=== PATIENT | female | born 1990 | race Caucasian/White ===

== ENCOUNTER 2019-05-26 05:41 | Inpatient (IN) | payer SELFPAY ==
[2019-05-26] MEDS ORDERED: Oxytocin 10 Units/1 ML SDV ONE (05:59)
[2019-05-26] MEDS ORDERED: Lidocaine 1% 10 ML MDV ONE (06:02)
[2019-05-26] MEDS ORDERED: Benzocaine/Menthol 20%-0.5% Spray 56 GM Canister TOP PRN (07:14)
[2019-05-26] MEDS ORDERED: Oxytocin 10 Units/1 ML SDV IM ONE (07:14)
[2019-05-26] MEDS ORDERED: Witch Hazel Medicated Pads 40/Jar TOP PRN (07:14)
[2019-05-26] MEDS ORDERED: Docusate Sodium 100 MG Cap PO PRN (07:14)
--- NOTE | 2019-05-26 07:23 | PCM.SN ---
- Free Text/Narrative Note: 29-year-old female who is 4 para 3 presented to the ER admitting desk in very active labor unable to sit down due to of the head. has apparently been uneventful and estimated date of confinement had been set at June 03. Patient states that she started to develop contractions around 0200 hrs. that woke her up but the contractions were irregular. They would come one every 10 minutes one every 3 minutes one every 5 minutes etc. They reside in [facility], and had to arrange for grandparents to arrive to look after the 3 children at home. En route to [place] she went into very active labor with contractions coming every 2-3 minutes. Upon arrival in the ER admission area she was screaming in pain due to of the fetus. She was brought back into the ED on her knees on a wheelchair he once we removed her clothing the baby's head was 75% delivered. The fetus was then delivered from behind and resuscitated with aggressive lying often rubbing. Fetus cried right away and I believe received scores of 8 and 9 mild acral cyanosis still present at the 5 minute che. Baby's mouth and nose were suctioned with bulb syringe at time of delivery. No meconium was identified. We were then finally able to transfer the patient onto a gurney in the left lateral decubitus position as the placenta was intact. The cord was milked towards the fetus and then held by me after 2 minutes by hand to prevent reverse flow of blood. It took a while to obtain clamps" from the OB unit. Once the fetus was from mother baby was warmed aggressively and gated catheter placed. Fetus was then given to the mother to hold. It was approximately a 10-14 minute delay in delivering the placenta over a period of 3-4 minutes as it was very slow in . However on inspection all cotyledons were present and I'm quite sure that all of the amniotic sac was delivered intact. The patient did have a fair amount of blood loss because of atony of the uterus. Estimated blood loss is 500 mils. She required vigorous uterine massage by nursing staff and we were able to obtain 10 units of oxytocin to be given IM from the OB unit. Upon inspection the patient has a tear in the midline of the floor of the vagina as well as the peritoneum approximately 7 cm along the vaginal floor and 4.5 cm of the perineum. Initial attempts to repair this in the ED were unsuccessful due to poor positioning and poor lighting. Therefore taken to room 4 on the OB suite for definitive repair by me. The perineum and vaginal floor were infiltrated with 1% lidocaine. [place] of the vaginal tear was identified and sutured with 4-0 Ethilon suture in a continuous fashion. Suture ends were brought out to the introitus. The peritoneum then was sutured with primarily subcutaneous sutures, using 4-0 Ethilon. 2 other sutures were placed 1 at the opening of the introitus and one at the apex of the wound on the inferior perineum to provide adequate closure. Rectal exam done at the end of the procedure reveals the transverse perineal muscles and the floor of the vagina and the wall of the rectum to be intact. Care will be turned over to Dr. Astudillo the patient's OB/ SPEECH AND HEARING CLINIC DIRECTOR and the baby will be cared for by Dr. Khloe Arvizu--farm field manager. I believe the family is cared for by Dr. Sheila Liang. The mother believes she is Rh+. This needs to be double checked. She was also apparently negative for group B strep on last check up in the clinic with Dr. Astudillo. This too needs to be double checked.
--- NOTE | 2019-05-26 08:40 | PCM.LDHP ---
L&D History of Present Illness - General Date of Service: 05/26/19 Admit Problem/Dx: Patient Status Order with Admit Dx/Problem 05/26/19 07:15 Patient Status [ADT] Routine Admission Diagnosis/Problem Admission Diagnosis/Problem Source of Information: Patient History Limitations: Reports: No Limitations - History of Present Illness Introduction:: Patient is a 29-year-old G4 now P3104 day #0 from vaginal delivery at 38-6/7 weeks gestation. 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 She was advised that she could come in or try drinking something and resting and call back in an hour. She called back in 1 hour stating contractions had lessened. She elected to stay home. Call back about another hour later that contractions had returned and were more regular. Planned on coming into the hospital. Slight delay from that phone call in getting to the hospital and ended up having a precipitous delivery in the emergency room department. See Dr. Hines's note for full details. Currently patient is shocked but otherwise feeling well. No significant pain. 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: : 4 Para: 4 - Past Surgical History HEENT Surgical History: Reports: Myringotomy w Tube(s), Oral Surgery, Tonsillectomy Social & Family History - Family History Family Medical History: Noncontributory - Tobacco Use Smoking Status *Q: Never Smoker - Caffeine Use Caffeine Use: Reports: None - Alcohol Use Alcohol Use History: No - Recreational Drug Use Recreational Drug Use: No - Living Situation & Occupation Living situation: Reports: H&P Review of Systems - Review of Systems: Review Of Systems: See Below General: Reports: No Symptoms Pulmonary: Reports: No Symptoms Cardiovascular: Reports: No Symptoms Gastrointestinal: Reports: Abdominal Pain Genitourinary: Reports: No Symptoms Musculoskeletal: Reports: No Symptoms Psychiatric: Reports: No Symptoms L&D Exam - Exam Exam: See Below - Exam General: Alert, Oriented, Cooperative Lungs: Clear to Auscultation, Normal Respiratory Effort Cardiovascular: Regular Rate, Regular Rhythm GI/Abdominal Exam: Soft Genitourinary: Normal external exam Extremities: Normal Inspection Skin: Warm, Dry, Intact - Problem List (1) Vaginal delivery SNOMED Code(s): 771723075 ICD Code: O80 - ENCOUNTER FOR FULL-TERM UNCOMPLICATED DELIVERY Status: Acute Current Visit: No Problem List Initiated/Reviewed/Updated: Yes Orders Last 24hrs: Active Orders 24 hr Category Date Time Status Patient Status [ADT] Routine ADT 05/26/19 07:15 Active Activity as Tolerated [RC] PER UNIT ROUTINE Care 05/26/19 07:15 Active Vital Signs [RC] ASDIRECTED Care 05/26/19 07:15 Active Regular Diet [DIET] Diet 05/26/19 Breakfast Active Acetaminophen [Tylenol] Med 05/26/19 07:14 Active 650 mg PO Q4H PRN Benzocaine/Menthol [Dermoplast Pain Relief [place]] Med 05/26/19 07:14 Active See Dose Instructions TOP ASDIRECTED PRN Docusate Sodium [Colace] Med 05/26/19 07:14 Active 100 mg PO BID PRN Ibuprofen [Motrin] Med 05/26/19 07:14 Active 600 mg PO Q6H PRN Witch [place] [Tucks] Med 05/26/19 07:14 Active 1 pad TOP ASDIRECTED PRN Assess Lochia [WOMSER] Per Unit Routine Oth 05/26/19 07:15 Ordered Assess Uterine Involution [WOMSER] Per Unit Routine Oth 05/26/19 07:15 Ordered Breast Pump [WOMSER] Per Unit Routine Oth 05/26/19 07:15 Ordered Heat Therapy [OM.PC] PRN Oth 05/26/19 07:15 Ordered Heat Therapy [OM.PC] PRN Oth 05/27/19 07:15 Ordered Ice Therapy [OM.PC] Per Unit Routine Oth 05/26/19 07:17 Ordered Perineal Care [OM.PC] Per Unit Routine Oth 05/26/19 07:15 Ordered Peripheral IV Discontinue [OM.PC] Routine Oth 05/26/19 07:18 Ordered Sitz Bath [OM.PC] Per Unit Routine Oth 05/26/19 07:15 Ordered Resuscitation Status Routine Resus Stat 05/26/19 07:14 Ordered Medication Orders Acetaminophen (Tylenol) 650 mg PO Q4H PRN PRN Reason: mild pain or fever Benzocaine/Menthol (Dermoplast Pain Relief [place]) 0 gm TOP ASDIRECTED PRN PRN Reason: Perineal Comfort Measure Docusate Sodium (Colace) 100 mg PO BID PRN PRN Reason: Constipation Ibuprofen (Motrin) 600 mg PO Q6H PRN PRN Reason: Mild pain or fever Witch [place]ine (Tucks) 1 pad TOP ASDIRECTED PRN PRN Reason: Perineal Comfort Measure Assessment/Plan Comment:: Will admit for care Breast feeding Pain control with ibuprofen and tylenol as needed
[2019-05-26] MEDS: Ibuprofen 600 MG Tab PO PRN ×2 (08:44→17:09)
[2019-05-26] MEDS: Acetaminophen 325 MG Tab PO PRN ×3 (09:44→20:19)
[2019-05-26] MEDS: Lidocaine 1% 50 ML MDV ONE ×2 (11:38→14:10)
[2019-05-27] MEDS: Ibuprofen 600 MG Tab PO PRN ×2 (00:33→06:54)
[2019-05-27] MEDS: Acetaminophen 325 MG Tab PO PRN (03:43)
--- NOTE | 2019-05-27 08:54 | PCM.DCSUM1 ---
Discharge Summary - Hospital Course Diagnosis: Stroke: No - Discharge Data Discharge Date: 05/27/19 Discharge Disposition: Home, Self-Care 01 Condition: Good - Referral to Home Health Primary Care Physician: Sandra Astudillo MD - Patient Instructions Diet: Usual Diet as Tolerated Activity: No Strenuous Activities Driving: May Drive Today Showering/Bathing: May Shower Wound/Incision Care: Keep Operative Site/Wound Site Clean and Dry Notify Provider of: Fever, Increased Pain, Swelling and Redness, Drainage, Nausea and/or Vomiting - Discharge Plan *PRESCRIPTION DRUG MONITORING PROGRAM REVIEWED*: No *COPY OF PRESCRIPTION DRUG MONITORING REPORT IN PATIENT MANDY: No Referrals: Sandra Astudillo MD [Primary Care Provider] - (2 weeks) - Discharge Summary/Plan Comment DC Time >30 min.: No - General Info Date of Service: 05/27/19 Functional Status: Reports: Pain Controlled - Review of Systems General: Reports: No Symptoms HEENT: Reports: No Symptoms Pulmonary: Reports: No Symptoms Cardiovascular: Reports: No Symptoms Gastrointestinal: Reports: No Symptoms Genitourinary: Reports: No Symptoms Musculoskeletal: Reports: No Symptoms Skin: Reports: No Symptoms Neurological: Reports: No Symptoms Psychiatric: Reports: No Symptoms - Patient Data Vitals - Most Recent: Last Vital Signs Temp 36.8 C 05/27/19 04:35 Pulse 88 05/27/19 04:35 Resp 14 05/27/19 04:35 BP 119/68 05/27/19 04:35 Pulse Ox 97 05/27/19 04:35 Weight - Most Recent: 88.904 kg I&O - Last 24 hours: Intake & Output 05/26/19 05/27/19 05/27/19 22:59 06:59 14:59 Intake Total 240 Balance 240 Med Orders - Current: Current Medications Acetaminophen (Tylenol) 650 mg PO Q4H PRN PRN Reason: mild pain or fever Last Admin: 05/27/19 03:43 Dose: 650 mg Benzocaine/Menthol (Dermoplast Pain Relief [place]) 0 gm TOP ASDIRECTED PRN PRN Reason: Perineal Comfort Measure Last Admin: 05/26/19 08:45 Dose: 1 can Docusate Sodium (Colace) 100 mg PO BID PRN PRN Reason: Constipation Ibuprofen (Motrin) 600 mg PO Q6H PRN PRN Reason: Mild pain or fever Last Admin: 05/27/19 06:54 Dose: 600 mg Witch [place]ine (Tucks) 1 pad TOP ASDIRECTED PRN PRN Reason: Perineal Comfort Measure Last Admin: 05/26/19 08:45 Dose: 1 tub Discontinued Medications Lidocaine HCl (Xylocaine 1%) Confirm Administered Dose 50 ml .ROUTE .STK-MED ONE Stop: 05/26/19 07:32 Last Admin: 05/26/19 14:10 Dose: 50 ml Lidocaine HCl (Xylocaine 1%) Confirm Administered Dose 10 ml .ROUTE .STK-MED ONE Stop: 05/26/19 06:03 Last Admin: 05/26/19 17:28 Dose: Not Given Oxytocin (Pitocin) Confirm Administered Dose 10 unit .ROUTE .STK-MED ONE Stop: 05/26/19 06:00 Last Admin: 05/26/19 17:28 Dose: Not Given Oxytocin (Pitocin) 10 unit IM ONETIME ONE Stop: 05/26/19 07:15 Last Admin: 05/26/19 17:28 Dose: 10 unit - Exam General: Reports: Alert, Oriented HEENT: Reports: Pupils Equal, Pupils Reactive, EOMI, Mucous Membr. Moist/[place] Neck: Reports: Supple Lungs: Reports: Clear to Auscultation, Normal Respiratory Effort Cardiovascular: Reports: Regular Rate, Regular Rhythm GI/Abdominal Exam: Normal Bowel Sounds, Soft, Non-Tender, No Organomegaly, No Distention, No Abnormal Bruit, No Mass, Pelvis Stable Rectal (Female) Exam: Normal Exam Back Exam: Reports: Normal Inspection, Full Range of Motion Extremities: Normal Inspection, Normal Range of Motion, Non-Tender, No Pedal Edema, Normal Capillary Refill Skin: Reports: Warm, Dry, Intact Neurological: Reports: No New Focal Deficit Psy/Mental Status: Reports: Alert, Normal Affect, Normal Mood
[2019-05-27 11:24] VITALS: BP 123/69; PULSE 78
== END 2019-05-27 12:20 | disposition home or self-care (01) | DRG 807 ==
LOC: JD.OBCHECK 05:41 → JD.OB 05:43
PROVIDERS: ADMIT Emergency Medicine; ATTEND Obstetrics & Gynecology
PROC: 10E0XZZ Delivery of Products of Conception, External Approach (ICD-10-PCS; principal; 2019-05-26)
PROC: 0HQ9XZZ Repair Perineum Skin, External Approach (ICD-10-PCS; 2019-05-26)
PROC: 0UQMXZZ Repair Vulva, External Approach (ICD-10-PCS; 2019-05-26)
DX: O70.1 Second degree perineal laceration during delivery (principal); Z37.0 Single live birth; Z3A.38 38 weeks gestation of pregnancy
CPT/HCPCS: 59300; 59409; A9270-GY; J2001; J2590